=== PATIENT | male | born 1960 | race Caucasian/White ===

== ENCOUNTER 2022-04-25 09:36 | Emergency (ER) | payer MEDICARE, OTHER ==
[~2022-04-25] VITALS: Ht 182.9 cm; Wt 88.5 kg
[2022-04-25] MEDS ORDERED: GABA300 PO (10:49)
== END 2022-04-25 11:00 | disposition home or self-care (01) ==
LOC: ER 09:36
DX: Z76.0 Encounter for issue of repeat prescription (principal); I25.10 Atherosclerotic heart disease of native coronary artery without angina pectoris; J44.9 Chronic obstructive pulmonary disease, unspecified; N18.9 Chronic kidney disease, unspecified; Z95.1 Presence of aortocoronary bypass graft; Z95.5 Presence of coronary angioplasty implant and graft; Z79.899 Other long term (current) drug therapy
CPT/HCPCS: 99281

== ENCOUNTER 2022-05-18 20:21 | Emergency (ER) | payer MEDICARE, OTHER ==
[~2022-05-18] VITALS: Ht 182.9 cm; Wt 90.7 kg
[~2022-05-18 20:21] MED LIST: GABA300 PO
== END 2022-05-18 23:47 | disposition home or self-care (01) ==
LOC: ER 20:21
DX: R07.81 Pleurodynia (principal); W01.190A Fall on same level from slipping, tripping and stumbling with subsequent striking against furniture, initial encounter; Z79.899 Other long term (current) drug therapy; Z95.5 Presence of coronary angioplasty implant and graft
CPT/HCPCS: 71101; 99283-25; A9270